=== PATIENT | female | born 1975 | race Caucasian/White ===

== ENCOUNTER → 2016-08-20 | Outpatient (CLI) | payer OTHER ==
[~2016-08-20] MED LIST: PRILOSEC PO
--- NOTE | ~2016-08-20 | TM ---
[id number] NAME: AMADEO SPAULDING MR#: [id number] EXAM Regular Treadmill Stress Test DESCRIPTION Resting heart rate is 62, resting blood pressure is 121/77 mmHg. PROCEDURE The patient was made to exercise on a standard Prosper protocol. Total exercise time is 9 minutes completing stage 3 of a standard Prosper protocol. Test stopped because of fatigue and target heart rate achieved. No complaints of chest pain or extreme shortness of breath. Maximum heart rate obtained is 160 which is 90% of maximal predicted heart rate. Maximum blood pressure obtained is 180/[address]-T wave changes suggestive of ischemia. No arrhythmias noted. CONCLUSION 1. Good exercise tolerance. 2. There is no clinical, hemodynamic or EKG evidence of ischemia at good workload (90% of maximum predicted heart rate, 10.1 METs. 3. Normal heart rate and blood pressure response. 4. Normal regular treadmill stress test. Dictated by...
== END | disposition home or self-care (01) ==
LOC: CEKG 07:44
DX: R07.89 Other chest pain (principal)
CPT/HCPCS: 93017

== ENCOUNTER → 2016-08-27 | Outpatient (CLI) | payer OTHER | END | disposition home or self-care (01) | LOC: CECH 09:42 | DX: R07.89 Other chest pain (principal); I36.1 Nonrheumatic tricuspid (valve) insufficiency; I34.0 Nonrheumatic mitral (valve) insufficiency | CPT/HCPCS: 93306 ==

== ENCOUNTER → 2016-10-09 | Outpatient (CLI) | payer OTHER ==
--- NOTE | ~2016-10-09 | MY29 ---
[facility] A Service of [facility] / [facility] RADIOLOGY TEXT RESULTS PATIENT: AMADEO SPAULDING LOCATION: [facility] : 73 UNIT #: [id number] AGE: [address]: Parmjit Figueroa MD SEX: F ORDER DR: [id number] [facility] [address] [place], [place] [address] [id number] O MR#: [id number] #: [id number] NAME: AMADEO SPAULDING : 1975 SEX: F STUDY DATE/TIME: 10/09/2016 9:21 UNIT: [facility] ROOM: STUDY DESCRIPTION: MY ANTIONE SCREENING W/ CAD BILAT Attending Physician: Parmjit Figueroa M.D. Referring Physician: Parmjit Figueroa M.D. Ordering Physician: Parmjit Figueroa M.D. Primary Care Physician: Parmjit Figueroa M.D. MEDICAL IMAGING REPORT This report is preliminary unless electronic signature is present EXAM Bilateral digital screening mammogram with CAD device 10/09/2016. HISTORY Routine screening. FINDINGS Digital imaging of each breast was completed utilizing a two-view examination of each breast in craniocaudal and mediolateral-oblique projections. Review and interpretation of digital mammograms include a second review in conjunction with FDA-approved CAD device. There is a normal parenchymal presentation bilaterally consistent with the patient's age. There are no breast masses imaged and no parenchymal asymmetry is visualized. There are no suspicious microcalcifications and I see no focal architectural disturbance. IMPRESSION Negative screening digital mammogram. One-year followup recommended. Patients over the age of 40 are entered into a reminder system with target due date for the next mammogram. A result letter will also be sent to the patient. BIRADS: 1 Negative Dictated by... Rigo Rosa M.D. THIS IS AN ELECTRONICALLY VERIFIED REPORT Rigo Rosa M.D. at 10/10/2016 2:36 PM KRT/gz [facility] A Service of [facility] RADIOLOGY TEXT RESULTS PATIENT: AMADEO SPAULDING LOCATION: [facility] : 73 UNIT #: [id number] AGE: [address]: Parmjit Figueroa MD SEX: F ORDER DR: TD: 10/09/2016 15:27 JOB #: [id number] MEDICAL IMAGING REPORT Page 1 of 1 COPY
== END | disposition home or self-care (01) ==
LOC: CWCC 08:57
DX: Z12.31 Encounter for screening mammogram for malignant neoplasm of breast (principal)
CPT/HCPCS: G0202